=== PATIENT | male | born 1950 ===

== ENCOUNTER 2017-08-12 19:42 | Inpatient (IN) | payer BC, MEDICARE ==
[2017-08-12 21:07] LABS: Bilirubin Negative (Negative); Blood, Urine Moderate (Negative); Clarity CLOUDY (Clear); Glucose, Urine (Dipstick) >=1000 mg/dL (Negative); Leukocyte Negative (Negative); Nitrite Negative (Negative); Protein, Urine (Dipstick) 30 mg/dL (Neg-Trace); Urobilinogen 0.2 mg/dL (0.2-1.0); pH, Urine 5.5 (5.0-9.0)
[2017-08-12 21:10] LABS: Bacteria/HPF None Seen HPF (None Seen); Hyaline Casts/LPF 7-10 HYALINE CAST LPF (0-3 Hyaline); Pathc Cast-AUWi Flag 2.18 (0-2.49); Yeast-AUWi Flag 213.4 (0-25.0)
[2017-08-12 21:16] LABS: Transitional Epithelial 0-3 HPF (0-3); Yeast-All Forms None Seen HPF (None Seen)
[2017-08-12] MEDS ORDERED: Milk Of Magnesia 30 ML UDCUP PO PRN (22:02)
[2017-08-12] MEDS ORDERED: Benzonatate 100 MG CAP PO PRN (22:02)
[2017-08-12] MEDS ORDERED: hydrALAZINE 20 MG/ML VIAL SLOW IVP PRN (22:02)
[2017-08-12] MEDS ORDERED: HumaLOG 300 UNITS/3 ML VIAL SC PRN ×2 (22:02)
[2017-08-12] MEDS ORDERED: Acetaminophen 325 MG TAB PO PRN ×2 (22:02→22:05)
[2017-08-12] MEDS ORDERED: Mag-Al 1200 mg/1200 mg/30 ML UDCUP PO PRN (22:02)
[2017-08-12] MEDS ORDERED: Dextrose 5% in Water 1,000 ML IV PRN (22:02)
[2017-08-12] MEDS ORDERED: Ondansetron HCl/PF 4 MG/2 ML Vial IVP PRN ×2 (22:02→22:05)
[2017-08-12] MEDS ORDERED: Ondansetron ODT 4 MG TAB PO PRN (22:02)
[2017-08-12] MEDS ORDERED: Dextrose 50% Abboject 50 ML SYRINGE SLOW IVP PRN (22:02)
[2017-08-12] MEDS ORDERED: Ondansetron ODT 4 MG TAB SL PRN (22:05)
[2017-08-12] MEDS ORDERED: Sodium Chloride 0.9% 1,000 ML IV SCH (22:15)
[2017-08-12] MEDS ORDERED: cefTRIAXone\\ROCEPHIN 1 GM in Syringe 10 ML IVPB SCH (22:15)
[2017-08-12] MEDS ORDERED: Azithromycin 500 MG in Sodium Chloride 0.9% 250 ML 250 ML IVPB SCH (22:30)
[2017-08-12] MEDS: Sodium Chloride 0.9% 1,000 ML IV SCH (23:40)
[2017-08-12 23:48] VITALS: BMI 39.4
--- NOTE | 2017-08-13 03:24 | HP ---
PRIMARY CARE PHYSICIAN: Dr. Addison. CHIEF COMPLAINT: Feeling weak, cough and fever. HISTORY OF PRESENT ILLNESS: Mr. Santa is a pleasant 66-year-old gentleman that has a history of hy pertension and diabetes mellitus. He was in his usual state of health until about 3 weeks ago when agusto crawford started feeling weak and tired and he says he was having what he thought were like allergy symptoms . He says that this got progressively worse and he started having a productive cough. He says he di d not look at the color, but he did say it was thick. He also was complaining of fever for the past 3 days. He was not getting any better and so his suggested that he come to the hospital for toney luation. In the ER, he was found to have an elevated white blood cell count. He is reported that he was hypoxic with an O2 saturation of approximately 80% on room air and his lactic acid level was danielito vated and for this reason, he was transferred to our facility for admission. The patient denies feel ing short of breath. He denies any chest pain, no nausea, no vomiting or diarrhea, but he does say t hat he has been extremely weak and again with a cough and fever. REVIEW OF SYSTEMS: Constitutional: He has had subjective fever, but no chills, no night sweats, no weight loss. HEENT: No headaches, no dizziness, no visual changes, no sore throat, rhinorrhea, neck pain, no adenopathy. Pulmonary: As the history of present illness. He also denies any hemoptysis. Cardiovascular: He denies any chest pain, no shortness of breath, no PND, no orthopnea. Gastroint estinal: No abdominal pain, no nausea, no vomiting, no change in bowels. Genitourinary: No urinary frequency, hematuria, no hesitancy. Neurologic: No focal weakness, numbness, no seizures. Psychia tric: No symptoms of anxiety or depression. Skin and Integument: No skin changes. No rash. PAST MEDICAL HISTORY: Significant for diabetes mellitus, hypertension, as well as bladder cancer. PAST SURGICAL HISTORY: He has had a scraping of his bladder and BCG treatment. ALLERGIES: No known drug allergies. SOCIAL HISTORY: He is a former smoker. He is . He drinks about 2 pints of beer a day bruise s on beer and he used to work in [employer]. FAMILY HISTORY: Significant for a sister who of lupus. Father, who had heart disease. MEDICATIONS: Include repaglinide 2 mg 3 times a day, Januvia 100 mg daily, Benicar 40/12.5 daily, In vokamet 150/1000 mg daily, amlodipine 5 mg daily and atorvastatin 10 mg a day. PHYSICAL EXAMINATION: GENERAL: He is alert and oriented. He appears to be in no acute distress. VITAL SIGNS: Blood pressure was 130/80, heart rate 105, respiratory rate of 20, temperature was 99. HEENT: Pupils are equal, round, and reactive. Extraocular muscles are intact. His sclerae are anic teric. Throat: No erythema, no exudates. NECK: No adenopathy, no bruits. LUNGS: He has got bilateral rhonchi and some rales at both bases. No wheezing. CARDIOVASCULAR: He has a normal S1, S2. I did not appreciate an S3 or S4. No murmurs, clicks or ru bs. ABDOMEN: Obese, it is soft, it is nontender, nondistended. Positive for bowel sounds. No rebound, no guarding. EXTREMITIES: He has got some nonpitting edema bilaterally. NEUROLOGICALLY: The exam is nonfocal. LABORATORY AND X-RAY FINDINGS: Lab results were reviewed from the previous hospital stay in the [facility] room that is and the white blood cell count was 17, hemoglobin 12.5, hematocrit is 37.1. Sodiu m was 143, potassium 3.7. His creatinine was 1.1, glucose was 182. Lactic acid was 5.3. Urinalysis was significant for moderate blood and chest x-ray was reported as having a right lower lobe infiltr ate. ASSESSMENT AND PLAN: 1. This is a pleasant 66-year-old gentleman, who presents to the emergency room with cough and fever , leukocytosis, and elevated lactic acid. He also had fever and for this reason he meets the criteri a for sepsis likely due to a community-acquired pneumonia. Since he has some comorbid conditions inc luding diabetes and hypertension as well as hypoxemia, he will be admitted to the medical floor, star ian on empiric IV antibiotics including Rocephin and azithromycin for the pneumonia, we will also jovanni ce him on gentle IV fluids and reevaluate. 2. For diabetes mellitus, we will continue his home medications along with a sliding scale insulin. 3. For hypertension, we will continue Benicar and place him on p.r.n. medications for blood pressure . He will also be placed on deep venous thrombosis as well as gastrointestinal prophylaxis.
[2017-08-13 04:22] LABS: #Eosinphils 0.1 thou/uL (0.0-0.7); #Lymphocytes 1.4 thou/uL (1.20-3.40); #Monocytes 1.5 thou/uL (0.11-0.59); #Neutrophils 11.1 thou/uL (1.40-6.50); %Basophils 0.3 % (0.0-1.0); %Eosinophils 0.7 % (0.0-10.0); %Lymphocytes 9.6 % (21.0-51.0); %Monocytes 10.5 % (0.0-10.0); %Neutrophils 78.9 % (42.0-75.0); Hemoglobin 11.1 g/dL (14.0-18.0); Mean Corpuscular HGB CONC 32.8 g/dL (32.0-36.0); Mean Corpuscular Hemoglobin 28.1 pg (27.0-31.0); Mean Corpuscular Volume 85.6 fl (80.0-94.0); Mean Platelet Volume 6.6 fL (7.4-10.4); Platelet Count 319 thou/uL (130-400); RBC Distribution Width 13.3 % (11.5-14.5); Red Blood Cell (RBC) Count 3.97 mill/uL (4.70-6.10); White Blood Cell (WBC) Count 14.1 thou/uL (4.8-10.8)
[2017-08-13 05:46] LABS: Anion Gap 12 mmol/L (10-20); BUN (Urea Nitrogen) 23 mg/dL (8.4-25.7); Calc. Creatinine Clearance 138 mL/min (70-130); Calcium 8.6 mg/dL (7.8-10.44); Carbon Dioxide 24 mmol/L (23-31); Chloride 107 mmol/L (98-107); Estimated GFR-MDRD 81; Glucose 113 mg/dL (80-115); Potassium 3.5 mmol/L (3.5-5.1); Sodium 139 mmol/L (136-145)
[2017-08-13] MEDS ORDERED: Prevnar 13-Val Conj/PF 0.5 ML SYRINGE IM ONE (07:00)
[2017-08-13] MEDS ORDERED: Eucerin (Mineral Oil/Petrolatum,White) 30 gm Jar TOP PRN (07:13)
[2017-08-13] MEDS ORDERED: Chloraseptic Spray 180 ml Bottle PO PRN (07:13)
[2017-08-13] MEDS ORDERED: HYDROcodone/Acetaminophen 5/325 mg Tablet PO PRN (07:13)
[2017-08-13] MEDS ORDERED: Sodium Chloride 0.65% Nasal 44 ML BOT EA NARE PRN (07:13)
[2017-08-13] MEDS ORDERED: Diabetic Tussin 200 MG/10 ML UDCUP PO PRN (07:13)
[2017-08-13] MEDS ORDERED: Temazepam 15 MG CAP PO PRN (07:13)
[2017-08-13] MEDS ORDERED: Loratadine 10 MG TAB PO PRN (07:13)
[2017-08-13] MEDS ORDERED: Artificial Tears 18 DROP/0.9 ML EA EYE PRN (07:13)
[2017-08-13 07:56] LABS: ALT (SGPT) 19 U/L (8-55); AST (SGOT) 19 U/L (5-34); Albumin 3.5 g/dL (3.4-4.8); Alkaline Phosphatase 80 U/L (40-150); Bilirubin, Direct 0.4 mg/dL (0.1-0.3); Bilirubin, Total 0.7 mg/dL (0.2-1.2); Protein, Total 6.7 g/dL (5.8-8.1)
[2017-08-13] MEDS ORDERED: Non-Formulary Item 1 EACH (Amlodipine Besylate/Benazepril [Amlodipine Besylate/Benazepril PO SCH (09:00)
[2017-08-13] MEDS ORDERED: REPAGLINIDE 2 MG PO SCH (09:00)
[2017-08-13] MEDS: Famotidine 20 MG TAB PO SCH ×2 (09:16→20:28)
[2017-08-13] MEDS: Alogliptin 25 MG TAB PO SCH (09:16)
[2017-08-13] MEDS: Amlodipine 5 MG TAB PO SCH (09:16)
[2017-08-13] MEDS: Atorvastatin Calcium 10 MG TAB PO SCH (09:16)
[2017-08-13] MEDS: Docusate 100 MG CAP PO SCH ×2 (09:17→20:28)
[2017-08-13] MEDS: Enoxaparin Sodium 40 MG/0.4 ML SYRINGE SC SCH (09:25)
--- NOTE | 2017-08-13 11:05 | PDOC.PN ---
- Subjective Encounter Start Date: 08/13/17 Encounter Start Time: 08:20 -: old records requested/rev Patient seen and examined. No new complaints. No overnight events pt has cough, dyspnea, no fever today feels better - Objective Resuscitation Status: Resuscitation Status FULL:Full Resuscitation MAR Reviewed: Yes Vital Signs & Weight: Vital Signs (12 hours) Temp Pulse Resp BP BP Pulse Ox 08/13/17 09:32 94 L 08/13/17 08:00 98.8 F 98 18 94 L 08/13/17 07:16 98.8 F 98 18 128/71 91 L 08/13/17 05:12 98.2 F 92 24 H 138/72 93 L 08/13/17 04:00 95 08/13/17 00:39 96 24 H 93 L 08/13/17 00:00 92 L Weight Weight 283 lb I&O: 08/12/17 08/13/17 08/14/17 06:59 06:59 06:59 Intake Total 650 Output Total 700 Balance -50 Result Diagrams: 08/13/17 04:03 08/13/17 04:03 Additional Labs: Accuchecks 08/13/17 05:11 POC Glucose 144 H Phys Exam - Physical Examination Constitutional: NAD HEENT: PERRLA, moist MMs, sclera anicteric Neck: no JVD, supple Respiratory: wheezing present few basal rales Cardiovascular: RRR, no significant murmur, no rub Gastrointestinal: soft, non-tender, no distention, positive bowel sounds obesity+ Musculoskeletal: no edema, pulses present Neurological: non-focal, normal sensation, moves all 4 limbs Lymphatic: no nodes Psychiatric: normal affect, A&O x 3 Skin: no rash, normal turgor Dx/Plan (1) Acute respiratory failure with hypoxia Code(s): J96.01 - ACUTE RESPIRATORY FAILURE WITH HYPOXIA Status: Acute (2) Community acquired bacterial pneumonia Code(s): J15.9 - UNSPECIFIED BACTERIAL PNEUMONIA Status: Acute (3) Lactic acidosis Code(s): E87.2 - ACIDOSIS Status: Acute (4) Sepsis with acute organ dysfunction Code(s): A41.9 - SEPSIS, UNSPECIFIED ORGANISM; R65.20 - SEVERE SEPSIS WITHOUT SEPTIC SHOCK Status: Acute (5) Diabetes type 2, controlled Code(s): E11.9 - TYPE 2 DIABETES MELLITUS WITHOUT COMPLICATIONS Status: Chronic (6) Hypertension Code(s): I10 - ESSENTIAL (PRIMARY) HYPERTENSION Status: Chronic (7) Obesity (BMI 30-39.9) Code(s): E66.9 - OBESITY, UNSPECIFIED Status: Chronic - Plan cont current plan of care, continue antibiotics, respiratory therapy * continue rocephin and azithromycin. * medication reviewed as below * symptomatic treatment * wean off oxygen as tolerated * follow culture * home medication reconciled. * continue IVF Review of Systems - Review of Systems Constitutional: negative: fever, chills, sweats, weakness, malaise, other Eyes: negative: Pain, Vision Change, Conjunctivae Inflammation, Eyelid Inflammation, Redness, Other ENT: negative: Ear Pain, Ear Discharge, Nose Pain, Nose Discharge, Nose Congestion, Mouth Pain, Mouth Swelling, Throat Pain, Throat Swelling, Other Respiratory: Cough, Shortness of Breath. negative: Dry, Hemoptysis, SOB with Excertion, Pleuritic Pain, Sputum, Wheezing Cardiovascular: negative: chest pain, palpitations, orthopnea, paroxysmal nocturnal dyspnea, edema, light headedness, other Gastrointestinal: negative: Nausea, Vomiting, Abdominal Pain, Diarrhea, Constipation, Melena, Hematochezia, Other Genitourinary: negative: Dysuria, Frequency, Incontinence, Hematuria, Retention , Other Musculoskeletal: negative: Neck Pain, Shoulder Pain, Arm Pain, Back Pain, Hand Pain, Leg Pain, Foot Pain, Other Skin: negative: Rash, Lesions, Giancarlo, Bruising, Other - Medications/Allergies Allergies/Adverse Reactions: Allergies Allergy/AdvReac Type Severity Reaction Status Date / Time No Known Drug Allergies Allergy Verified 08/12/17 22:03 Medications: Current Medications Acetaminophen (Tylenol) 650 mg PO Q4H PRN PRN Reason: Headache/Fever or Pain Hydrocodone Bitart/Acetaminophen ([place] 5/325) 1 tab PO Q4H PRN PRN Reason: Moderate Pain (4-6) Al Hydroxide/Mg Hydroxide (Maalox) 30 ml PO Q6H PRN PRN Reason: Heartburn or Indigestion Albuterol/Ipratropium (Duoneb) 3 ml NEB Q4H PRN PRN Reason: SOB &/or Wheezing Alogliptin Benzoate (Alogliptin) 25 mg PO DAILY [facility] Last Admin: 08/13/17 09:16 Dose: 25 mg Amlodipine Besylate (Norvasc) 5 mg PO DAILY [facility] Last Admin: 08/13/17 09:16 Dose: 5 mg Artificial Tears (Tears Naturale) 0 drop EA EYE PRN PRN PRN Reason: Dry Eyes Atorvastatin Calcium (Lipitor) 10 mg PO DAILY [facility] Last Admin: 08/13/17 09:16 Dose: 10 mg Benazepril HCl (Lotensin) 40 mg PO DAILY [facility] Last Admin: 08/13/17 09:16 Dose: 40 mg Dextrose/Water (Dextrose 50%) 25 gm SLOW IVP PRN PRN PRN Reason: Hypoglycemia Docusate Sodium (Colace) 100 mg PO BID [facility] Last Admin: 08/13/17 09:17 Dose: Not Given Enoxaparin Sodium (Lovenox) 40 mg SC 0900 [facility] Last Admin: 08/13/17 09:25 Dose: Not Given Famotidine (Pepcid) 20 mg PO BID [facility] Last Admin: 08/13/17 09:16 Dose: 20 mg Glucagon (Glucagon) 1 mg IM PRN PRN PRN Reason: Hypoglycemia Guaifenesin (Robitussin Sf) 200 mg PO Q4H PRN PRN Reason: Cough Hydralazine HCl (Apresoline) 10 mg SLOW IVP Q4H PRN PRN Reason: Systolic BP > 180 Dextrose/Water (D5w) 1,000 mls @ 0 mls/hr IV .Q0M PRN; As Directed PRN Reason: Hypoglycemia Sodium Chloride (Normal Saline 0.9%) 1,000 mls @ 75 mls/hr IV .[id number] [facility] Last Admin: 08/12/17 23:40 Dose: 1,000 mls Azithromycin 500 mg/ Sodium (Chloride) 250 mls @ 250 mls/hr IVPB 1800 [facility] Ceftriaxone Sodium 1 gm/ (Syringe) 10 mls @ 120 mls/hr IVPB 1700 [facility] Insulin Human Lispro (Humalog) 0 units SC .MODERATE SLIDING SC PRN PRN Reason: Moderate Correctional Scale Insulin Human Lispro (Humalog) 0 units SC .BEDTIME SLIDING SC PRN PRN Reason: Bedtime Correctional Scale Loratadine (Claritin) 10 mg PO DAILYPRN PRN PRN Reason: Sinus Symptoms Magnesium Hydroxide (Milk Of Magnesium) 30 ml PO DAILYPRN PRN PRN Reason: Constipation Mineral Oil/White Petrolatum (Eucerin Cream) 0 gm TOP BIDPRN PRN PRN Reason: Dry Skin Ondansetron HCl (Zofran Odt) 4 mg PO Q6H PRN PRN Reason: Nausea/Vomiting Ondansetron HCl (Zofran) 4 mg IVP Q6H PRN PRN Reason: Nausea/Vomiting Phenol (Chloraseptic [place] 180 Ml Bot) 0 ml PO PRN PRN PRN Reason: Sore Throat Repaglinide (Prandin) 2 mg PO AC [facility] Last Admin: 08/13/17 09:16 Dose: 2 mg Sodium Chloride ([place] Nasal [place] 0.65%) 0 ml EA NARE QIDPRN PRN PRN Reason: Nasal Congestion Temazepam (Restoril) 15 mg PO HSPRN PRN PRN Reason: Insomnia
[2017-08-13] MEDS: Sodium Chloride 0.9% 1,000 ML IV SCH ×2 (13:23→20:28)
[2017-08-13] MEDS ORDERED: Azithromycin 500 MG in Sodium Chloride 0.9% 250 ML 250 ML IVPB SCH (17:00)
[2017-08-13] MEDS: cefTRIAXone\\ROCEPHIN 1 GM in Syringe 10 ML IVPB SCH (17:23)
[2017-08-13] MEDS: Azithromycin 500 MG in Sodium Chloride 0.9% 250 ML 250 ML IVPB SCH (17:24)
[2017-08-14 04:59] LABS: #Eosinphils 0.2 thou/uL (0.0-0.7); #Lymphocytes 1.5 thou/uL (1.20-3.40); #Monocytes 1.3 thou/uL (0.11-0.59); #Neutrophils 9.8 thou/uL (1.40-6.50); %Basophils 0.2 % (0.0-1.0); %Eosinophils 1.5 % (0.0-10.0); %Lymphocytes 11.4 % (21.0-51.0); %Monocytes 10.2 % (0.0-10.0); %Neutrophils 76.8 % (42.0-75.0); Hemoglobin 10.5 g/dL (14.0-18.0); Mean Corpuscular HGB CONC 33.3 g/dL (32.0-36.0); Mean Corpuscular Hemoglobin 28.6 pg (27.0-31.0); Mean Corpuscular Volume 86.1 fl (80.0-94.0); Mean Platelet Volume 6.7 fL (7.4-10.4); Platelet Count 335 thou/uL (130-400); RBC Distribution Width 13.3 % (11.5-14.5); Red Blood Cell (RBC) Count 3.66 mill/uL (4.70-6.10); White Blood Cell (WBC) Count 12.8 thou/uL (4.8-10.8)
[2017-08-14 05:13] LABS: Anion Gap 12 mmol/L (10-20); BUN (Urea Nitrogen) 18 mg/dL (8.4-25.7); Calc. Creatinine Clearance 171 mL/min (70-130); Calcium 8.2 mg/dL (7.8-10.44); Carbon Dioxide 22 mmol/L (23-31); Chloride 109 mmol/L (98-107); Estimated GFR-MDRD Greater than 90; Glucose 89 mg/dL (80-115); Potassium 3.3 mmol/L (3.5-5.1); Sodium 140 mmol/L (136-145)
[2017-08-14] MEDS: Docusate 100 MG CAP PO SCH ×2 (08:10→20:33)
[2017-08-14] MEDS: Famotidine 20 MG TAB PO SCH ×2 (08:10→20:33)
[2017-08-14] MEDS: Atorvastatin Calcium 10 MG TAB PO SCH (08:10)
[2017-08-14] MEDS: Alogliptin 25 MG TAB PO SCH (08:10)
[2017-08-14] MEDS: Amlodipine 5 MG TAB PO SCH (08:11)
[2017-08-14] MEDS: Enoxaparin Sodium 40 MG/0.4 ML SYRINGE SC SCH ×2 (08:13→08:27)
[2017-08-14] MEDS: Sodium Chloride 0.9% 1,000 ML IV SCH (09:09)
[2017-08-14] MEDS ORDERED: Potassium Chloride 20 MEQ TAB PO SCH (12:00)
[2017-08-14] MEDS: Azithromycin 500 MG in Sodium Chloride 0.9% 250 ML 250 ML IVPB SCH (18:14)
[2017-08-14] MEDS: cefTRIAXone\\ROCEPHIN 1 GM in Syringe 10 ML IVPB SCH (18:35)
--- NOTE | 2017-08-14 21:21 | PDOC.PN ---
- Subjective Encounter Start Date: 08/14/17 Encounter Start Time: 19:30 Patient seen and examined. No new complaints. No overnight events. Cough with scant production - Objective Resuscitation Status: Resuscitation Status FULL:Full Resuscitation MAR Reviewed: Yes Vital Signs & Weight: Vital Signs (12 hours) Temp Pulse Resp BP Pulse Ox 08/14/17 20:00 98.8 F 93 16 158/77 H 90 L 08/14/17 16:30 99.4 F 102 H 20 172/79 H 93 L 08/14/17 12:00 98.9 F 94 20 144/75 H 92 L Weight Weight 283 lb I&O: 08/13/17 08/14/17 08/15/17 06:59 06:59 06:59 Intake Total 650 1380 2241 Output Total 700 400 Balance -50 980 2241 Result Diagrams: 08/15/17 04:12 08/15/17 04:12 Additional Labs: Accuchecks 08/14/17 08/14/17 08/14/17 19:56 16:45 11:04 POC Glucose 221 H 155 H 195 H 08/14/17 06:09 POC Glucose 95 Phys Exam - Physical Examination Constitutional: NAD Respiratory: no wheezing Dx/Plan - Plan IMPRESSION: 1. Sepsis with acute organ dysfunction/Acute hypoxic resp failure 2. CA Pneumonia ?Pneumococcus 3. Lactic acidosis due to sepsis 4. HTN 5. DM2 6. Obesity BMI 39.5 PLAN: * Cont Atbx * Cont Nebs * Add Florastor/Mucinex * Cont to monitor * Repeat CXR in AM * DC in 1-2 days if stable Review of Systems - Review of Systems Respiratory: Cough, Sputum. negative: Dry, Shortness of Breath, Hemoptysis, SOB with Excertion, Pleuritic Pain, Wheezing Cardiovascular: negative: chest pain, palpitations, orthopnea, paroxysmal nocturnal dyspnea, edema, light headedness, other Gastrointestinal: negative: Nausea, Vomiting, Abdominal Pain, Diarrhea, Constipation, Melena, Hematochezia, Other - Medications/Allergies Allergies/Adverse Reactions: Allergies Allergy/AdvReac Type Severity Reaction Status Date / Time No Known Drug Allergies Allergy Verified 08/12/17 22:03 Medications: Current Medications Acetaminophen (Tylenol) 650 mg PO Q4H PRN PRN Reason: Headache/Fever or Pain Hydrocodone Bitart/Acetaminophen ([place] 5/325) 1 tab PO Q4H PRN PRN Reason: Moderate Pain (4-6) Al Hydroxide/Mg Hydroxide (Maalox) 30 ml PO Q6H PRN PRN Reason: Heartburn or Indigestion Albuterol/Ipratropium (Duoneb) 3 ml NEB Q4H PRN PRN Reason: SOB &/or Wheezing Alogliptin Benzoate (Alogliptin) 25 mg PO DAILY [facility] Last Admin: 08/14/17 08:10 Dose: 25 mg Amlodipine Besylate (Norvasc) 5 mg PO DAILY [facility] Last Admin: 08/14/17 08:11 Dose: 5 mg Artificial Tears (Tears Naturale) 0 drop EA EYE PRN PRN PRN Reason: Dry Eyes Atorvastatin Calcium (Lipitor) 10 mg PO DAILY [facility] Last Admin: 08/14/17 08:10 Dose: 10 mg Benazepril HCl (Lotensin) 40 mg PO DAILY [facility] Last Admin: 08/14/17 08:12 Dose: 40 mg Dextrose/Water (Dextrose 50%) 25 gm SLOW IVP PRN PRN PRN Reason: Hypoglycemia Docusate Sodium (Colace) 100 mg PO BID [facility] Last Admin: 08/14/17 20:33 Dose: Not Given Famotidine (Pepcid) 20 mg PO BID [facility] Last Admin: 08/14/17 20:33 Dose: 20 mg Glucagon (Glucagon) 1 mg IM PRN PRN PRN Reason: Hypoglycemia Guaifenesin (Robitussin Sf) 200 mg PO Q4H PRN PRN Reason: Cough Last Admin: 08/14/17 20:33 Dose: 200 mg Hydralazine HCl (Apresoline) 10 mg SLOW IVP Q4H PRN PRN Reason: Systolic BP > 180 Dextrose/Water (D5w) 1,000 mls @ 0 mls/hr IV .Q0M PRN; As Directed PRN Reason: Hypoglycemia Azithromycin 500 mg/ Sodium (Chloride) 250 mls @ 250 mls/hr IVPB 1800 [facility] Last Admin: 08/14/17 18:14 Dose: 250 mls Ceftriaxone Sodium 1 gm/ (Syringe) 10 mls @ 120 mls/hr IVPB 1700 [facility] Last Admin: 08/14/17 18:35 Dose: 10 mls Loratadine (Claritin) 10 mg PO DAILYPRN PRN PRN Reason: Sinus Symptoms Magnesium Hydroxide (Milk Of Magnesium) 30 ml PO DAILYPRN PRN PRN Reason: Constipation Mineral Oil/White Petrolatum (Eucerin Cream) 0 gm TOP BIDPRN PRN PRN Reason: Dry Skin Ondansetron HCl (Zofran Odt) 4 mg PO Q6H PRN PRN Reason: Nausea/Vomiting Ondansetron HCl (Zofran) 4 mg IVP Q6H PRN PRN Reason: Nausea/Vomiting Phenol (Chloraseptic [place] 180 Ml Bot) 0 ml PO PRN PRN PRN Reason: Sore Throat Potassium Chloride (K-Dur) 20 meq PO [facility] Repaglinide (Prandin) 2 mg PO [facility] Last Admin: 08/14/17 16:58 Dose: 2 mg Sodium Chloride ([place] Nasal [place] 0.65%) 0 ml EA NARE QIDPRN PRN PRN Reason: Nasal Congestion Temazepam (Restoril) 15 mg PO HSPRN PRN PRN Reason: Insomnia
[2017-08-15 04:54] LABS: #Eosinphils 0.2 thou/uL (0.0-0.7); #Lymphocytes 1.8 thou/uL (1.20-3.40); #Monocytes 1.4 thou/uL (0.11-0.59); #Neutrophils 9.4 thou/uL (1.40-6.50); %Basophils 0.2 % (0.0-1.0); %Eosinophils 1.7 % (0.0-10.0); %Lymphocytes 14.1 % (21.0-51.0); %Monocytes 10.6 % (0.0-10.0); %Neutrophils 73.4 % (42.0-75.0); Hemoglobin 10.8 g/dL (14.0-18.0); Mean Corpuscular HGB CONC 32.4 g/dL (32.0-36.0); Mean Corpuscular Hemoglobin 28.4 pg (27.0-31.0); Mean Corpuscular Volume 87.5 fl (80.0-94.0); Mean Platelet Volume 6.8 fL (7.4-10.4); Platelet Count 378 thou/uL (130-400); RBC Distribution Width 13.4 % (11.5-14.5); Red Blood Cell (RBC) Count 3.79 mill/uL (4.70-6.10); White Blood Cell (WBC) Count 12.8 thou/uL (4.8-10.8)
[2017-08-15 05:26] LABS: Anion Gap 13 mmol/L (10-20); BUN (Urea Nitrogen) 15 mg/dL (8.4-25.7); BUN/Creatinine Ratio 19.74; Calc. Creatinine Clearance 169 mL/min (70-130); Calcium 8.4 mg/dL (7.8-10.44); Carbon Dioxide 21 mmol/L (23-31); Chloride 112 mmol/L (98-107); Estimated GFR-MDRD Greater than 90; Glucose 109 mg/dL (80-115); Magnesium 2.4 mg/dL (1.6-2.6); Potassium 3.8 mmol/L (3.5-5.1); Sodium 142 mmol/L (136-145)
[2017-08-15] MEDS ORDERED: Potassium Chloride 20 MEQ TAB PO SCH (08:00)
[2017-08-15] MEDS: Famotidine 20 MG TAB PO SCH (08:17)
[2017-08-15] MEDS: Alogliptin 25 MG TAB PO SCH (08:17)
[2017-08-15] MEDS: Docusate 100 MG CAP PO SCH ×2 (08:18→08:24)
[2017-08-15] MEDS: Atorvastatin Calcium 10 MG TAB PO SCH (08:18)
[2017-08-15] MEDS: Amlodipine 5 MG TAB PO SCH (08:18)
[2017-08-15] MEDS ORDERED: Saccharomyces boulardii 250 MG CAP PO SCH (09:00)
[2017-08-15] MEDS ORDERED: guaiFENesin ER 600 MG TAB PO SCH (09:00)
--- NOTE | 2017-08-15 10:35 | RAD ---
TWO VIEWS CHEST: HISTORY: Pneumonia followup. FINDINGS: PA and lateral views of the chest are obtained. Two views chest demonstrate areas of patchy density in the right lower lobe compatible with an area o f right lower lobe pneumonia. The left lower lobe and other pulmonary lobes are unremarkable. IMPRESSION: Area of right upper lobe pneumonia. Followup films to resolution recommended. POS: [facility]
[2017-08-15] MEDS: cefTRIAXone\\ROCEPHIN 1 GM in Syringe 10 ML IVPB SCH (11:57)
[2017-08-15] MEDS: Azithromycin 500 MG in Sodium Chloride 0.9% 250 ML 250 ML IVPB SCH (12:04)
--- NOTE | 2017-08-15 13:01 | DIS ---
DATE OF ADMISSION: 08/12/2017 DATE OF DISCHARGE: 08/15/2017 DISCHARGE DISPOSITION: Home. FOLLOWUP: 1. Follow up with primary care physician, Dr. Phil Christensen in 1 week. 2. Repeat chest x-ray after 4 weeks is recommended. Primary care physician is advised to follow. The patient was seen and examined on the day of discharge, denies any new complaints, no chest pain, shortness of breath, palpitations. DISCHARGE MEDICATIONS: 1. Azithromycin 500 mg daily for the next 7 days. 2. Omnicef 300 mg twice a day for next 7 days. 3. Mucinex twice a day for 2 weeks. 4. Other home medications were resumed. INPATIENT CONSULTANTS: None. BRIEF HOSPITAL COURSE: The patient is a 66-year-old male with hypertension and diabetes mellitus typ e 2, presented to the emergency room with shortness of breath, fever and cough. His O2 saturation wa s 80% on room air with elevated lactic acid in the emergency room. His chest x-ray was consistent wi th right lower lobe pneumonia. Please refer to the history and physical dated 08/12/2017 for further details. The patient was admitted to the hospital with a diagnosis of acute hypoxic respiratory failure second les to community-acquired pneumonia. He was started on azithromycin with good improvement. His whit e blood cell count has stabilized at 12.8 without left shift. He has been afebrile overnight. He ap pears stable for discharge. His repeat lactic acid has been normal at 1.0. FINAL DIAGNOSES: 1. Sepsis with acute organ dysfunction secondary to community-acquired pneumonia, suspected pneumoco ccus. 2. Acute hypoxic respiratory failure secondary to #1. 3. Lactic acidosis on admission secondary to sepsis, resolved. 4. Hypertension. 5. Diabetes mellitus type 2. 6. Obesity with a BMI 39.5. 7. Mild hypokalemia, corrected. 8. Chronic kidney disease stage 2. 9. Dehydration on admission, resolved. Plan of care was discussed with the patient in detail. He stated understanding.
[2017-08-15 15:56] VITALS: BP 146/74; TEMP 98.9
== END 2017-08-15 16:55 | disposition home or self-care (01) | DRG 871 ==
LOC: ERS 19:42 → T4-A 20:30
PROVIDERS: ADMIT Internal Medicine; ATTEND Internal Medicine
DX: A41.9 Sepsis, unspecified organism (principal); J13 Pneumonia due to Streptococcus pneumoniae; J96.01 Acute respiratory failure with hypoxia; E87.2 Acidosis; E11.22 Type 2 diabetes mellitus with diabetic chronic kidney disease; E86.0 Dehydration; R65.20 Severe sepsis without septic shock; E87.6 Hypokalemia; I12.9 Hypertensive chronic kidney disease with stage 1 through stage 4 chronic kidney disease, or unspecified chronic kidney disease; N18.2 Chronic kidney disease, stage 2 (mild); E66.9 Obesity, unspecified; Z68.39 Body mass index [BMI] 39.0-39.9, adult; Z85.51 Personal history of malignant neoplasm of bladder; Z87.891 Personal history of nicotine dependence
CPT/HCPCS: 36415; 36416; 71046; 80048; 80069; 80076; 81003; 81015; 83605; 83735; 85025; 87633; 99285; J0456; J0696; J1650; J7050